=== PATIENT | male | born 1940 | race Caucasian/White ===

== ENCOUNTER 2023-07-04 17:21 | Emergency (ER) | payer MEDICARE ==
[~2023-07-04] VITALS: Ht 162.6 cm; Wt 65.7 kg
[~2023-07-04 17:21] MED LIST: DORZOLAMIDE-TIM10 ML OPTH; GLIPIZIDE ER2.5 MG PO; XALATAN2.5 ML OPTH
[2023-07-04] MEDS ORDERED: fentaNYL citrate 100 MCG/2 ML VIAL IV PRN (17:30)
[2023-07-04] MEDS ORDERED: fentaNYL citrate 100 MCG/2 ML VIAL ONE (17:30)
[2023-07-04 17:36] LABS: BASOPHILS 0.8 % (0-2); EOSINOPHILS 2.7 % (0-6); HEMATOCRIT 37.2 % (35.0-50.0); HEMOGLOBIN 12.6 g/dL (12.0-18.0); LYMPHOCYTES 32.3 % (24-44); MCH 30.8 (27-36); MCHC 33.9 g/dl (30-36); MCV 90.7 fl (81-99); MONOCYTES 8.5 % (0-12); NEUTROPHILS 55.7 % (39-80); PLATELET COUNT 297 K/uL (140-440); RDW 13.4 (10.5-15.0)
[2023-07-04 17:50] LABS: ALBUMIN 3.5 g/dL (3.4-5.0); ALBUMIN/GLOBULIN RATIO 0.92 (1.1-2.4); ALCOHOL, MEDICAL <3 ng/dL (<3); ALKALINE PHOSPHATASE 72 U/L (46-116); ALT (SGPT) 22 U/L (14-59); ANION GAP 16.7 (7-21); AST (SGOT) 20 U/L (15-37); BILIRUBIN, TOTAL 0.3 ng/dL (0.2-1.0); BUN/CREATININE RATIO 15.78 (6.0-28.6); CALCIUM 8.9 mg/dL (8.5-10.1); CARBON DIOXIDE 23 mmol/L (21-32); CHLORIDE 102 mmol/L (98-107); CREATINE KINASE 342 U/L (39-308); CREATININE, SERUM 1.71 mg/dL (0.70-1.30); GLOMERULAR FILTRATION RATE,EST 40 mL/min (>60); POTASSIUM 3.7 mmol/L (3.5-5.1); PROTEIN, TOTAL 7.3 g/dL (6.4-8.2); UREA NITROGEN 27 mg/dL (7-18)
[2023-07-04 18:07] VITALS: BP 170/80
[2023-07-04] MEDS ORDERED: AMLODIPINE BES2.5 MG PO (18:11)
[2023-07-04] MEDS ORDERED: GLIMEPIRIDE4 MG PO (18:11)
[2023-07-04 18:13] LABS: ABO A; ANTIBODY SCREEN NEGATIVE; RH POSITIVE
[2023-07-04] MEDS ORDERED: DIPHTH,PERTUSS(ACELL),TET VAC 0.5 ML SYRINGE IM ONE (19:45)
--- NOTE | 2023-07-06 05:13 | EKG ---
[facility] [address] [facility] [place] [id number] Signed Sinus tachycardia with occasional premature ventricular complexes Left axis deviation Cannot rule out Inferior infarct , age undetermined Abnormal ECG No previous ECGs available Confirmed by SHERMAN HERNANDEZ MD ([id number]) on 07/06/2023 5:13:41 AM Electronically Signed By: SHERMAN HERNANDEZ 07/06/23512 PATIENT NAME: CONNIE SHERWOOD Electrocardiogram DATE OF : 42 PHYSICIAN: SHERMAN HERNANDEZ REPORT #: [id number] REPORT IS CONFIDENTIAL AND NOT TO BE RELEASED WITHOUT AUTHORIZATION
== END 2023-07-04 22:17 | disposition short-term general hospital (02) ==
LOC: ED 17:21
PROVIDERS: Emergency Medicine
DX: S06.5XAA Traumatic subdural hemorrhage with loss of consciousness status unknown, initial encounter (principal); S06.6XAA Traumatic subarachnoid hemorrhage with loss of consciousness status unknown, initial encounter; S02.5XXA Fracture of tooth (traumatic), initial encounter for closed fracture; S01.511A Laceration without foreign body of lip, initial encounter; S02.122A Fracture of orbital roof, left side, initial encounter for closed fracture; S02.31XA Fracture of orbital floor, right side, initial encounter for closed fracture; S02.40CA Maxillary fracture, right side, initial encounter for closed fracture; R91.8 Other nonspecific abnormal finding of lung field; W24.0XXA Contact with lifting devices, not elsewhere classified, initial encounter; Y99.0 Civilian activity done for income or pay; Z87.891 Personal history of nicotine dependence; Z88.8 Allergy status to other drugs, medicaments and biological substances; Z79.84 Long term (current) use of oral hypoglycemic drugs; Z79.899 Other long term (current) drug therapy
CPT/HCPCS: 12014; 36415; 70450; 71260; 72125; 74177; 80053; 80307; 82553; 83690; 85025; 86850; 86900; 86901; 90471; 90715; 93005; 93010; 99285-25; G0480; J3010

== ENCOUNTER 2025-01-06 16:30 | Emergency (ER) | payer MEDICARE, OTHER ==
[~2025-01-06] VITALS: Ht 162.6 cm; Wt 63.0 kg
[~2025-01-06 16:30] MED LIST changes: +AMLODIPINE BES2.5 MG PO; +GLIMEPIRIDE4 MG PO
[2025-01-06 20:14] LABS: BASOPHILS 0.7 % (0.2-1.2); EOSINOPHILS 3.6 % (0.8-7.0); LYMPHOCYTES 25.0 % (21.8-53.1); MCH 30.4 PG (25.7-32.2); MCHC 33.4 g/dL (32.3-36.5); MCV 91.1 fL (79.0-92.2); MONOCYTES 11.1 % (5.3-12.2); NEUTROPHILS 59.3 % (34.0-67.9); RBC 4.50 M/uL (4.63-6.08)
[2025-01-06] MEDS ORDERED: methylPREDNISolone 4 MG HOME.PACK PO ONE (21:00)
[2025-01-06] MEDS ORDERED: TRAMADOL HCL 50 MG HOME.PACK PO ONE (21:00)
[2025-01-06 21:33] VITALS: BP 141/58
== END 2025-01-06 21:34 | disposition home or self-care (01) ==
LOC: ED 16:30
PROVIDERS: Family Medicine
DX: M72.2 Plantar fascial fibromatosis (principal); E11.9 Type 2 diabetes mellitus without complications; I10 Essential (primary) hypertension; Z88.8 Allergy status to other drugs, medicaments and biological substances; Z79.899 Other long term (current) drug therapy
CPT/HCPCS: 36415; 73630; 84550; 85025; 99283; A9270